=== PATIENT | female | born 1985 | race Caucasian/White ===

== ENCOUNTER → 2019-03-20 | Outpatient (CLI) | payer BC ==
[~2019-03-20] MED LIST: CIPR-225 PO; HYDR-3812; METR500T PO; PEPCID; PRD10T
--- NOTE | 2019-03-20 14:43 | Diagnostic Imaging Report ---
PROCEDURE: CT sinuses without contrast TECHNIQUE: Multiple contiguous axial images were obtained through the sinuses without the use of intravenous contrast. Coronal and sagittal reformations were then performed. Auto Exposure Controls were utilized during the CT exam to meet ALARA standards for radiation dose reduction. INDICATION: Chronic right facial pain. COMPARISON: No prior studies are available for comparison. FINDINGS: Frontal sinus is hypoplastic. The ethmoid air cells and sphenoid sinus are clear. Right maxillary sinus is clear. Minimal mucosal thickening of the left maxillary sinus is noted. No air-fluid levels are present. Sphenoid demonstrates trace mucosal thickening. Mastoids are well-aerated. Ostiomeatal complexes are patent. Nasal septum is midline. IMPRESSION: Minimal paranasal sinus mucosal thickening. The study is otherwise unremarkable. Dictated by: Dictated on workstation # [id number]
== END ==
LOC: RAD 14:12
PROVIDERS: ATTEND Otolaryngology Otolaryngology/Facial Plastic Surgery
DX: G89.29 Other chronic pain (principal); R51 Headache
CPT/HCPCS: 70486

== ENCOUNTER 2019-03-22 14:02 | Emergency (ER) | payer BC ==
[~2019-03-22] VITALS: Ht 165.1 cm; Wt 72.6 kg
--- OUTSIDE RECORDS SUMMARY | 2019-03-22 14:08 | XMS REPORT | Continuity of Care Document ---
Author Organization Unknown Address Unknown Allergies Active Description Code Type Severity Reaction Onset Reported/Identified Relationship to Patient Clinical Status Yes No Known Medication Allergies Drug N/A N/A Yes No Known Medication Allergies Drug N/A N/A Medications Medication Packaging Start Date Stop Date Route Dosage Sig adalimumab 12/16/2018 12/17/2018 SQ 40 mg / 0.8 mL cetirizine 12/17/2018 PO 10 mg / 1 tab predniSONE 12/17/2018 12/17/2018 PO 40 mg / 4 tab famotidine 12/17/2018 PO 20 mg / 1 tab predniSONE 01/16/2019 PO 40 mg / 4 tab ustekinumab 01/30/2019 01/30/2019 IV PiggybackCP 390 mg / 250 mL Problems Date Dx Coded Attending Type Code Diagnosis Diagnosed By 01/16/2019 Cindy Rowley Final K21.0 Gastro-esophageal reflux disease with esophagitis 01/16/2019 Cindy Rowley Admitting K21.9 Gastro-esophageal reflux disease without esophagitis 01/16/2019 Cindy Rowley Final K51.90 Ulcerative colitis, unspecified, without complications 01/16/2019 Cindy Rowley Final K58.0 Irritable bowel syndrome with diarrhea 01/16/2019 FER SKINNER Final K51.90 Ulcerative colitis, unspecified, without complications Procedures Code [place] [address] Esophagogastroduodenoscopy, flexible, MIGUEL Saunders 01/16/2019 89440 Colonoscopy, flexible; with biopsy, MIGUEL Knapp 01/16/2019 Results There is no data. Encounters ACCT No. Visit Date/Time Discharge Status Pt. Type Provider Facility Loc./Unit Complaint [id number] 01/30/2019 11:09:00 01/30/2019 23:59:59 [facility] [id number] 12/17/2018 08:42:54 12/17/2018 23:59:59 DIS Outpatient [facility] [id number] 12/08/2018 11:12:00 12/08/2018 23:59:59 [facility] [id number] 01/16/2019 10:32:00 01/16/2019 23:59:00 [facility] RAD MR ENTEROGRAPHY [id number] 01/16/2019 07:39:00 01/16/2019 23:59:00 DIS Outpatient [facility] ENW EGD -COLON [id number] 12/23/2018 07:55:00 01/06/2019 14:25:00 DIS Outpatient [facility] ENW EGD COLON [id number] 12/18/2018 09:03:00 12/29/2018 11:28:00 [facility] RAD MR ENEROGRAPHY [id number] 12/17/2018 16:46:00 12/17/2018 23:59:00 [facility] IMGL
[2019-03-22] MEDS ORDERED: PRD10T (16:03)
[2019-03-22] MEDS ORDERED: HYDR-3812 (16:03)
[2019-03-22] MEDS ORDERED: PEPCID (16:03)
[2019-03-22] MEDS ORDERED: NS IV 1000 ML 1,000 ML IV ONE (16:05)
[2019-03-22] MEDS ORDERED: ONDANSETRON 4 MG/2 ML (SDV) Z0FRAN IVP ONE (16:15)
[2019-03-22 16:19] LABS: BASOPHILS % (AUTO) 0 % (0-10); EOSINOPHILS # (AUTO) 0.2 10^3/uL (0.0-0.3); EOSINOPHILS % (AUTO) 1 % (0-10); HEMATOCRIT 39 % (35-52); HEMOGLOBIN 13.4 G/DL (11.5-16.0); LYMPHOCYTES # (AUTO) 1.7 X 10^3 (1.0-4.0); LYMPHOCYTES % (AUTO) 11 % (12-44); MEAN CORPUSCULAR HEMOGLOBIN 29 PG (25-34); MEAN CORPUSCULAR HGB CONC 34 G/DL (32-36); MEAN CORPUSCULAR VOLUME 83 FL (80-99); MEAN PLATELET VOLUME 9.2 FL (7.4-10.4); MONOCYTES # (AUTO) 1.3 X 10^3 (0.0-1.0); MONOCYTES % (AUTO) 9 % (0-12); NEUTROPHILS # (AUTO) 12.2 X 10^3 (1.8-7.8); NEUTROPHILS % (AUTO) 79 % (42-75); PLATELET COUNT 359 10^3/uL (130-400); RED CELL DISTRIBUTION WIDTH 14.2 % (10.0-14.5); WHITE BLOOD COUNT 15.4 10^3/uL (4.3-11.0)
[2019-03-22 16:26] LABS: BILIRUBIN,URINE NEGATIVE (NEGATIVE); CLARITY,URINE VERY CLOUDY; COLOR,URINE YELLOW; GLUCOSE, URINE (UA) NEGATIVE (NEGATIVE); KETONES,URINE 4+ (NEGATIVE); LEUKOCYTE ESTERASE ,URINE 3+ (NEGATIVE); NITRITE,URINE NEGATIVE (NEGATIVE); PH,URINE 5 (5-9); PROTEIN,URINE 3+ (NEGATIVE); UROBILINOGEN,URINE NORMAL (NORMAL)
[2019-03-22 16:33] LABS: ANISOCYTOSIS SLIGHT; BAND NEUTROPHILS 0 %; BASOPHILS % (MANUAL) 0 %; EOSINOPHILS % (MANUAL) 0 %; LYMPHOCYTES % (MANUAL) 10 %; MONOCYTES % (MANUAL) 7 %; NEUTROPHILS % (MANUAL) 82 %; REACTIVE LYMPHOCYTES 1 %
[2019-03-22 16:36] LABS: BACTERIA,URINE MODERATE /HPF; RBC,URINE 0-2 /HPF
[2019-03-22 16:39] LABS: ERYTHROCYTE SEDIMENTATION RATE 69 MM/HR (0-20)
[2019-03-22 16:45] LABS: ALBUMIN 4.2 GM/DL (3.2-4.5); BILIRUBIN,TOTAL 0.6 MG/DL (0.1-1.0); CALCIUM 10.1 MG/DL (8.5-10.1); CREATININE SERUM 1.09 MG/DL (0.60-1.30); MAGNESIUM 2.1 MG/DL (1.8-2.4); POTASSIUM 3.8 MMOL/L (3.6-5.0); TOTAL PROTEIN 8.1 GM/DL (6.4-8.2)
--- NOTE | 2019-03-22 17:06 | NUR ---
TO ROOM FLUIDS CON'T TO INFUSING CON'T TO HAVE NAUSEA.
[2019-03-22] MEDS ORDERED: fentaNYL INJECTION 100 MCG/2 ML AMP IVP ONE ×3 (17:15→20:00)
[2019-03-22] MEDS ORDERED: PROMETHAZINE INJ 25 MG/ML (PHENERGAN) AMP IVP ONE (17:15)
[2019-03-22] MEDS ORDERED: HOLD METFORMIN - RECEIVED CONTRAST 20 ML VIAL IV SCH (17:30)
[2019-03-22] MEDS ORDERED: IOHEXOL 350 MG/ML 100 ML (OMNIPAQUE 350) VIAL IV ONE (17:30)
--- NOTE | 2019-03-22 18:03 | Diagnostic Imaging Report ---
PROCEDURE: CT abdomen and pelvis with contrast. TECHNIQUE: Multiple contiguous axial images were obtained through the abdomen and pelvis after administration of intravenous contrast. Auto Exposure Controls were utilized during the CT exam to meet ALARA standards for radiation dose reduction. INDICATION: Abdominal pain with a history of Crohn's disease. COMPARISON: No comparison of the abdomen and pelvis available. FINDINGS: The lung bases demonstrate no focal infiltrate or consolidation. There is no pleural or pericardial effusion. The liver demonstrates no evidence of a focal intrahepatic abnormality. Patient is status post cholecystectomy. There is some mild post-cholecystectomy intrahepatic biliary prominence which is within normal limits for post-cholecystectomy state. There is no significant dilation of the common bile duct. Pancreas is unremarkable. Spleen is normal in size. There is no adrenal mass. There appears to be multifocal ill-defined abnormal hypoenhancement within both of the kidneys. By imaging, the features are suspect for pyelonephritis. There is no hydronephrosis. The small and large bowel appear normal in caliber without evidence of obstruction. There is some slight prominence demonstrated of the mucosa of the terminal ileum, but this does not demonstrate significant mucosal hyperenhancement. This may reflect a sequela of Crohn's without significant current active inflammation. The appendix is well visualized and normal. There are a few small right lower quadrant mesenteric lymph nodes. In the right lower quadrant, there is a 3.9 cm adnexal cyst likely reflective of an ovarian cyst. There is a small degree of free fluid within the cul-de-sac, which may reflect cyst rupture. The uterus and urinary bladder appear unremarkable. There are no findings of free air. There is no abscess. The aorta is normal in caliber. There is no acute or suspicious osseous abnormality. The vertebral body heights are maintained. There is no effusion evident of the SI joints. IMPRESSION: 1. Abnormal irregular patchy hypoenhancement within both kidneys suggests pyelonephritis. Correlate with urinalysis. 2. Thickened appearance of the mucosa of the terminal ileum likely is related to the patient's history of Crohn's disease, but there is no current mucosal hyperenhancement or significant regional inflammation to suggest an active flare. The appendix is well visualized and normal. There are a few small right lower quadrant lymph nodes. 3. Small degree of free fluid within the cul-de-sac is favored to likely be on a physiologic basis given the presence of a right-sided adnexal and presumed ovarian cyst. 4. Previous cholecystectomy. Dictated by: Dictated on workstation # [id number]
--- NOTE | 2019-03-22 18:04 | NUR ---
TO ROOM NAUSEA BETTER PAIN MEDS HELPED FOR AWHILE
[2019-03-22] MEDS ORDERED: RX-PHENERGAN 25 MG SUPP PPK#3 PR STA (18:36)
--- NOTE | 2019-03-22 18:43 | ED Abdominal Pain ---
General Chief Complaint: Abdominal/GI Problems Stated Complaint: POSS FACIAL NEURALGIA/FACIAL PAIN/CROHN'S FLARE UP Nursing Triage Note: AMB TO ROOM REPORTS FOR 1 MONTH HAS HAD FACIAL PAIN THAT SHE HAS BEEN TX BY DR GOMEZ FOR. BUT CON'T TO HAVE PAIN TOOK IBUPROFEN WICH HAD CAUSE HER CROHN'S TO FLARE UP. Sepsis Screen: No Definite Risk Source of Information: Patient Exam Limitations: No Limitations History of Present Illness Date Seen by Provider: Mar 22, 2019 Time Seen by Provider: 15:55 Initial Comments This 34-year-old woman presents to the emergency room with multiple complaints including facial pain which she thought was related to sinusitis. She has seen Dr. Gomez who assessed her and perform CT scan. Based on his assessment, she reports that symptoms are not related to sinusitis. He prescribed hydrocodone for her pain which makes her nausea and vomiting worse. She has been on multiple therapies for this problem including Z-Pavan, amoxicillin, and Augmentin. She had a CT scan of the sinuses performed on Saturday which revealed only minimal sinus thickening. She also has Crohn's disease and presents with exacerbations of abdominal pain, nausea, and vomiting. Her abdominal pain has been intensifying and seems to wrap around her mid back now. Patient's lunch counter manager is Dr. Rowley in [place], [place]. Allergies and Home Medications Allergies Coded Allergies: No Known Drug Allergies (Unverified , 03/22/19) Home Medications Ciprofloxacin HCl 500 Mg Tablet, 500 MG PO BID Prescribed by: MONAE WESLEY on 03/22/191855 Metronidazole 500 Mg Tablet, 500 MG PO BID Prescribed by: MONAE WESLEY on 03/22/191855 Patient Home Medication List Home Medication List Reviewed: Yes Review of Systems Review of Systems Constitutional: no symptoms reported EENTM: See HPI Respiratory: No Symptoms Reported Cardiovascular: No Symptoms Reported Gastrointestinal: See HPI Genitourinary: No Symptoms Reported Musculoskeletal: no symptoms reported Skin: no symptoms reported Psychiatric/Neurological: No Symptoms Reported Endocrine: No Symptoms Reported Past Ksoytaq-Ktmphk-Ialxpk Hx Patient Social History Alcohol Use: Occasionally Uses Recreational Drug Use: No Smoking Status: Never a Smoker Recent Foreign Travel: No Contact w/Someone Who Travel: No Recent Infectious Disease Expo: No Past Medical History Surgeries: Yes Gallbladder Cardiac: No Neurological: No Genitourinary: No Gastrointestinal: Yes Crohns Disease Musculoskeletal: No Endocrine: No HEENT: No Cancer: No Psychosocial: No Blood Disorders: No Physical Exam Vital Signs Vital Signs - First Documented 03/22/19 15:06 Pulse 99 Resp 18 B/P (MAP) 150/100 (117) Pulse Ox 98 O2 Delivery Room Air Capillary Refill : Less Than 3 Seconds Height/Weight/BMI Height: 5'5.00" Weight: 160lbs. oz. 72.525573fa; BMI Method:Stated General Appearance: WD/WN, mild distress HEENT: PERRL/EOMI, normal ENT inspection, pharynx normal Neck: normal inspection Respiratory: lungs clear, normal breath sounds, no respiratory distress, no accessory muscle use Cardiovascular: regular rate, rhythm, no edema, no murmur Gastrointestinal: normal bowel sounds, soft, tenderness (Generalized) Extremities: normal inspection, no pedal edema Neurologic/Psychiatric: juvenile justice specialist II-XII nml as tested, no motor/sensory deficits, alert, normal mood/affect, oriented x 3 Skin: normal color, warm/dry Progress/Results/Core Measures Results/Orders Lab Results Laboratory Tests Test 03/22/19 16:12 03/22/19 16:20 Range/Units White Blood Count 15.4 H 4.3-11.0 10^3/uL Red Blood Count 4.69 4.35-5.85 10^6/uL Hemoglobin 13.4 11.5-16.0 G/DL Hematocrit 39 35-52 % Mean Corpuscular Volume 83 80-99 FL Mean Corpuscular Hemoglobin 29 25-34 PG Mean Corpuscular Hemoglobin Concent 34 32-36 G/DL Red Cell Distribution Width 14.2 10.0-14.5 % Platelet Count 359 130-400 10^3/uL Mean Platelet Volume 9.2 7.4-10.4 FL Neutrophils (%) (Auto) 79 H 42-75 % Lymphocytes (%) (Auto) 11 L 12-44 % Monocytes (%) (Auto) 9 0-12 % Eosinophils (%) (Auto) 1 0-10 % Basophils (%) (Auto) 0 0-10 % Neutrophils # (Auto) 12.2 H 1.8-7.8 X 10^3 Lymphocytes # (Auto) 1.7 1.0-4.0 X 10^3 Monocytes # (Auto) 1.3 H 0.0-1.0 X 10^3 Eosinophils # (Auto) 0.2 0.0-0.3 10^3/uL Basophils # (Auto) 0.0 0.0-0.1 10^3/uL Neutrophils % (Manual) 82 % Lymphocytes % (Manual) 10 % Monocytes % (Manual) 7 % Eosinophils % (Manual) 0 % Basophils % (Manual) 0 % Band Neutrophils 0 % Reactive Lymphocytes 1 % Anisocytosis SLIGHT Erythrocyte Sedimentation Rate 69 H 0-20 MM/HR Sodium Level 139 135-145 MMOL/L Potassium Level 3.8 3.6-5.0 MMOL/L Chloride Level 105 98-107 MMOL/L Carbon Dioxide Level 18 L 21-32 MMOL/L Anion Gap 16 H 5-14 MMOL/L Blood Urea Nitrogen 11 7-18 MG/DL Creatinine 1.09 0.60-1.30 MG/DL Estimat Glomerular Filtration Rate 57 BUN/Creatinine Ratio 10 Glucose Level 83 70-105 MG/DL Calcium Level 10.1 8.5-10.1 MG/DL Corrected Calcium 9.9 8.5-10.1 MG/DL Magnesium Level 2.1 1.8-2.4 MG/DL Total Bilirubin 0.6 0.1-1.0 MG/DL Aspartate Amino Transf (AST/SGOT) 38 H 5-34 U/L Alanine Aminotransferase (ALT/SGPT) 77 H 0-55 U/L Alkaline Phosphatase 100 40-136 U/L C-Reactive Protein High Sensitivity 22.31 H 0.00-0.50 MG/DL Total Protein 8.1 6.4-8.2 GM/DL Albumin 4.2 3.2-4.5 GM/DL Lipase 25 8-78 U/L Serum Test, Qualitative NEGATIVE NEGATIVE Urine Color YELLOW Urine Clarity VERY CLOUDY H Urine pH 5 5-9 Urine Specific [place] 1.020 1.016-1.022 Urine Protein 3+ H NEGATIVE Urine Glucose (UA) NEGATIVE NEGATIVE Urine Ketones 4+ H NEGATIVE Urine Nitrite NEGATIVE NEGATIVE Urine Bilirubin NEGATIVE NEGATIVE Urine Urobilinogen NORMAL NORMAL MG/DL Urine Leukocyte Esterase 3+ H NEGATIVE Urine RBC (Auto) 3+ H NEGATIVE Urine RBC 0-2 /HPF Urine WBC 2-5 /HPF Urine Squamous Epithelial Cells 10-25 H /HPF Urine Crystals NONE /LPF Urine Bacteria MODERATE H /HPF Urine Casts NONE /LPF Urine Mucus MODERATE H /LPF Urine Culture Indicated YES My Orders Orders - BRUEGGEMANN,MNOAE T MD Cbc With Automated Diff (03/22/19 16:05) Comprehensive Metabolic Panel (03/22/19 16:05) Hs C Reactive Protein (03/22/19 16:05) Lipase (03/22/19 16:05) Magnesium (03/22/19 16:05) Ua Culture If Indicated (03/22/19 16:05) Erythrocyte Sedimentation Rate (03/22/19 16:05) Ed Iv/Invasive Line Start (03/22/19 16:05) Ns Iv 1000 Ml (Sodium Chloride 0.9%) (03/22/19 16:05) Ondansetron Injection (Zofran Injectio (03/22/19 16:15) Manual Differential (03/22/19 16:12) Urine Culture (03/22/19 16:20) Hcg,Qualitative Serum (03/22/19 16:53) Fentanyl Injection (Sublimaze Injection (03/22/19 17:15) Promethazine Injection (Phenergan Injec (03/22/19 17:15) Ct Abdomen/Pelvis W (03/22/19 17:09) Iohexol Injection (Omnipaque 350 Mg/Ml 1 (03/22/19 17:30) Received Contrast (Hold Metformin- Contr (03/22/19 17:30) Fentanyl Injection (Sublimaze Injection (03/22/19 18:15) Methylprednisolone Sod Succ (Solu-Medrol (03/22/19 18:45) Rx-Oxycodone/Apap 5-325 Mg (Rx-Percocet (03/22/19 18:45) Rx-Promethazine Hcl (Rx-Phenergan Supp) (03/22/19 18:36) Gabapentin Capsule/Tablet (Neurontin Cap (03/22/19 18:45) Ciprofloxacin Iv 400mg/200ml (Cipro Iv S (03/22/19 18:45) Fentanyl Injection (Sublimaze Injection (03/22/19 20:00) Oxycodone/Apap 5/325mg Tablet (Percocet (03/22/19 20:00) Medications Given in ED Current Medications Medications Dose Ordered Sig/Shailesh Route Start Time Stop Time Status Last Admin Dose Admin Ciprofloxacin/ Dextrose 200 ml @ 200 mls/hr ONCE ONCE IV 03/22/19 18:45 03/22/19 19:44 DC 03/22/19 19:05 200 MLS/HR Fentanyl Citrate 50 mcg ONCE ONCE IVP 03/22/19 17:15 03/22/19 17:16 DC 03/22/19 17:16 50 MCG Fentanyl Citrate 75 mcg ONCE ONCE IVP 03/22/19 18:15 03/22/19 18:16 DC 03/22/19 18:19 75 MCG Gabapentin 300 mg ONCE ONCE PO 03/22/19 18:45 03/22/19 18:46 DC 03/22/19 19:03 300 MG Methylprednisolone Sodium Succinate 125 mg ONCE ONCE IVP 03/22/19 18:45 03/22/19 18:46 DC 03/22/19 19:03 125 MG Ondansetron HCl 8 mg ONCE ONCE IVP 03/22/19 16:15 03/22/19 16:16 DC 03/22/19 16:22 8 MG Promethazine HCl 25 mg ONCE ONCE IVP 03/22/19 17:15 03/22/19 17:16 DC 03/22/19 17:16 25 MG Sodium Chloride 1,000 ml @ 0 mls/hr Q0M ONCE IV 03/22/19 16:05 03/22/19 16:06 DC 03/22/19 16:22 1,000 MLS/HR Vital Signs/I&O 03/22/19 15:06 Pulse 99 Resp 18 B/P (MAP) 150/100 (117) Pulse Ox 98 O2 Delivery Room Air Blood Pressure Mean: 117 Progress Progress Note : Time: 19:52 Progress Note She was initially treated with Zofran and IV fluids. Labs were obtained. Inflammatory markers and WBC were elevated. WBC elevation may be secondary to steroids although she has not used her maintenance prednisone of 30 mg daily for the past few days as she is having difficulty keeping her medications down. Because of her pain and elevated inflammatory markers, CT scan was recommended. Patient agreed. CT demonstrated no specific abnormalities to account for her acute pain. There were abnormalities of the kidneys that could represent pyelonephritis. However, urine was not suggestive of this as there were no nitrites and no WBC noted. Empiric therapy for Crohn's disease with Cipro and Solu-Medrol was offered. Patient accepted. Cipro should also cover urinary tract infection if present. Patient required multiple doses of pain medication. She was given additional fentanyl. She was given Neurontin for suspected neuropathic pain of her face. Patient's pain rebounded to a significant degree. She was given additional fentanyl and Percocet. If symptoms are controlled, she will return home and contact her lunch counter manager in the morning. A take-home pack of Phenergan and a take- home pack of Percocet are being dispensed. Diagnostic Imaging Diagonstic Imaging: CT Plain Films/CT/US/NM/MRI: abdomen, pelvis Comments CT abdomen and pelvis viewed by me and report reviewed. See report below: NAME: ANA VILLANUEVA [facility] REC#: [id number] PT STATUS: REG ER : 1985 PHYSICIAN: MONAE MARROQUIN MD ADMIT DATE: 03/22/19/ER Signed Date of Exam: 03/22/19 CT ABDOMEN/PELVIS W PROCEDURE: CT abdomen and pelvis with contrast. TECHNIQUE: Multiple contiguous axial images were obtained through the abdomen and pelvis after administration of intravenous contrast. Auto Exposure Controls were utilized during the CT exam to meet ALARA standards for radiation dose reduction. INDICATION: Abdominal pain with a history of Crohn's disease. COMPARISON: No comparison of the abdomen and pelvis available. FINDINGS: The lung bases demonstrate no focal infiltrate or consolidation. There is no pleural or pericardial effusion. The liver demonstrates no evidence of a focal intrahepatic abnormality. Patient is status post cholecystectomy. There is some mild post-cholecystectomy intrahepatic biliary prominence which is within normal limits for post-cholecystectomy state. There is no significant dilation of the common bile duct. Pancreas is unremarkable. Spleen is normal in size. There is no adrenal mass. There appears to be multifocal ill-defined abnormal hypoenhancement within both of the kidneys. By imaging, the features are suspect for pyelonephritis. There is no hydronephrosis. The small and large bowel appear normal in caliber without evidence of obstruction. There is some slight prominence demonstrated of the mucosa of the terminal ileum, but this does not demonstrate significant mucosal hyperenhancement. This may reflect a sequela of Crohn's without significant current active inflammation. The appendix is well visualized and normal. There are a few small right lower quadrant mesenteric lymph nodes. In the right lower quadrant, there is a 3.9 cm adnexal cyst likely reflective of an ovarian cyst. There is a small degree of free fluid within the cul-de-sac, which may reflect cyst rupture. The uterus and urinary bladder appear unremarkable. There are no findings of free air. There is no abscess. The aorta is normal in caliber. There is no acute or suspicious osseous abnormality. The vertebral body heights are maintained. There is no effusion evident of the SI joints. IMPRESSION: 1. Abnormal irregular patchy hypoenhancement within both kidneys suggests pyelonephritis. Correlate with urinalysis. 2. Thickened appearance of the mucosa of the terminal ileum likely is related to the patient's history of Crohn's disease, but there is no current mucosal hyperenhancement or significant regional inflammation to suggest an active flare. The appendix is well visualized and normal. There are a few small right lower quadrant lymph nodes. 3. Small degree of free fluid within the cul-de-sac is favored to likely be on a physiologic basis given the presence of a right-sided adnexal and presumed ovarian cyst. 4. Previous cholecystectomy. Dictated by: Dictated on workstation # [id number] Dict: 03/22/191747 Trans: 03/22/191808 Interpreted by: FELICITY GLORIA MD Electronically signed by: FELICITY GLORIA MD 03/22/191808 Departure Impression Primary Impression: Crohns disease Qualified Codes: K50.919 - Crohn's disease, unspecified, with unspecified complications Additional Impressions: Nausea and vomiting Qualified Codes: R11.2 - Nausea with vomiting, unspecified Generalized abdominal pain Facial neuralgia Urinary tract infection Qualified Codes: N39.0 - Urinary tract infection, site not specified Disposition: 01 HOME, SELF-CARE Condition: Improved Departure-Patient Inst. Decision time for Depature: 18:53 Referrals: CHASE ANTOINE MD (PCP/Family) Primary Care Physician Patient Instructions: Crohn's Disease (DC), Urinary Tract Infection, Adult (DC) Add. Discharge Instructions: Drink plenty of clear liquids. Gradually advance her diet with small quantities of bland food as tolerated. Contact your lunch counter manager tomorrow morning and discuss further therapies. Please inform him you have been prescribed Cipro and Flagyl and make sure he is in agreement with this therapy. Review urine culture results with your primary care provider on Saturday or Saturday of this week. Use Percocet one tablet every 4-6 hours as needed for pain. Use the Phenergan (promethazine) suppositories every 6 hours as needed for nausea and vomiting. Return to the emergency room if you have worsening symptoms. Otherwise, follow up with your lunch counter manager and primary care provider. All discharge instructions reviewed with patient and/or family. Voiced understanding. Scripts Metronidazole (Flagyl) 500 Mg Tablet 500 MG PO BID, #14 TAB Prov: MONAE MARROQUIN MD 03/22/19 Ciprofloxacin HCl (Cipro) 500 Mg Tablet 500 MG PO BID, #14 TAB Prov: MONAE MARROQUIN MD 03/22/19 MONAE MARROQUIN MD Mar 22, 2019 18:43
[2019-03-22] MEDS ORDERED: methylPREDNISolone 125 MG (Solu-MEDROL) VIAL IVP ONE (18:45)
[2019-03-22] MEDS ORDERED: CIPROFLOXACIN IV 400MG/200ML 200 ML IV ONE (18:45)
[2019-03-22] MEDS ORDERED: RX-OXYCODONE/APAP 5-325 MG #4 TAB PK PO PRN (18:45)
[2019-03-22] MEDS ORDERED: GABAPENTIN 300 MG (NEURONTIN) CAP PO ONE (18:45)
[2019-03-22] MEDS ORDERED: CIPR-225 PO (18:56)
[2019-03-22] MEDS ORDERED: METR500T PO (18:56)
--- NOTE | 2019-03-22 19:08 | NUR ---
REPORT RECIEVED FROM ANKIT COBOS TO ASSUME CARE OF PT @ THIS TIME.
[2019-03-22] MEDS ORDERED: oxyCODONE/APAP 5/325MG (PERCOCET 5) TABLET PO ONE (20:00)
[2019-03-22 20:10] VITALS: BP 108/66
== END 2019-03-22 20:38 | disposition home or self-care (01) ==
LOC: EDUNIT# 14:02 → ER 14:05
DX: K50.919 Crohn's disease, unspecified, with unspecified complications (principal); N39.0 Urinary tract infection, site not specified; G58.8 Other specified mononeuropathies; Z98.890 Other specified postprocedural states
CPT/HCPCS: 36415; 74177; 80053; 81000; 83690; 83735; 84703; 85007; 85027; 85652; 86141; 87077; 87088; 87186; 96361; 96365; 96375; 96376

== ENCOUNTER → 2019-04-20 | Outpatient (CLI) | payer BC ==
[~2019-04-20] MED LIST changes: +GADOBUTROL 7.5 MMOL/7.5 ML (GADAVIST) VIAL IV ONE
--- NOTE | 2019-04-20 11:10 | Diagnostic Imaging Report ---
INDICATION: Facial pain. No prior studies are available for comparison. Pre and post intravenous contrast multiplanar multisequence imaging of the brain and IACs was performed. FINDINGS: The ventricles and sulci are within normal limits. No sulcal effacement or midline shift is identified. There is no diffusion restriction. The normal expected flow voids within the carotid siphons are seen. No acute intra-axial or extra-axial hemorrhage is detected. The corpus callosum is unremarkable. Sella and parasellar structures are unremarkable. No abnormal enhancement is seen following contrast administration. Imaging through the IACs was performed. Seventh and eighth nerve complexes are unremarkable. No cerebellopontine angle mass is detected. No abnormal enhancement is seen. IMPRESSION: Unremarkable pre and postcontrast MRI of the brain and IACs. Dictated by: Dictated on workstation # [id number]
== END ==
LOC: RAD 09:14
DX: G50.1 Atypical facial pain (principal)
CPT/HCPCS: 70553